=== PATIENT | female | born 1950 | race Caucasian/White ===

== ENCOUNTER 2018-04-14 13:56 | Emergency (ER) | payer MEDICARE, OTHER ==
--- NOTE | 2018-04-14 16:57 | RAD ---
Date of service: 04/14/2018 PROCEDURE: Radiographs of the left clavicle. HISTORY: point tenderness on clavicle COMPARISON: None. FINDINGS: LEFT CLAVICLE: No fracture or focal lesion. JOINTS: Preserved glenohumeral relationship, acromioclavicular degenerative change: Mild. SOFT TISSUES: Grossly unremarkable. OTHER FINDINGS: None. IMPRESSION: No acute findings related to/ accounting for the clinical presentation.
--- NOTE | 2018-04-14 16:58 | RAD ---
Date of service: 04/14/2018 PROCEDURE: Radiographs of the Left Shoulder HISTORY: acute left shoulder pain COMPARISON: No prior. FINDINGS: BONES: Normal. No fracture. JOINTS: Normal. Glenohumeral and acromioclavicular joints preserved. No osteoarthritis. SOFT TISSUES: Normal. OTHER FINDINGS: None. IMPRESSION: Normal radiographs of the left shoulder.
--- NOTE | 2018-04-14 17:31 | ED PDOC ---
Upper Extremity Pain/Injury Time Seen by Provider: 04/14/18 14:37 Chief Complaint (Nursing): Chest Pain Chief Complaint (Provider): Left shoulder pain History Per: Patient History/Exam Limitations: language barrier (hx obtained using [employer] [employer]l interpreter # [id number]) Additional Complaint(s): 68 y/o F with hx of arthritis and HTN who presents with left shoulder/chest pain since yesterday. Pt states that she has a hx of arthritis and has had shoulder pain but last night was much worse than ever. It occurred while she was sitting down suddenly and has been having trouble lifting her left arm. States that the pain is mostly over her left clavicle. Denies SOB, numbness/tingling, palpitations, fever, chills, night sweats or trauma/fall. Past Medical History Reviewed: Historical Data, Nursing Documentation, Vital Signs Vital Signs: Last Vital Signs Temp 98.7 F 04/14/18 14:23 Pulse 69 04/14/18 14:23 Resp 18 04/14/18 14:23 BP 130/69 04/14/18 14:23 Pulse Ox 97 04/14/18 14:23 - Medical History PMH: Arthritis - Family History Family History: States: Unknown Family Hx - Home Medications Home Medications: Ambulatory Orders Medication Instructions Recorded Cyclobenzaprine [Cyclobenzaprine 10 mg PO Q8 PRN 5 Days tab 04/14/18 HCl] RX: Ibuprofen [Motrin Tab] 800 mg PO Q6 PRN 7 Days tab 04/14/18 - Allergies Allergies/Adverse Reactions: Allergies Allergy/AdvReac Type Severity Reaction Status Date / Time No Known Allergies Allergy Verified 04/14/18 14:23 Review of Systems Constitutional: Negative for: Fever, Chills Cardiovascular: Positive for: Chest Pain Respiratory: Negative for: Shortness of Breath Musculoskeletal: Positive for: Shoulder Pain Physical Exam - Reviewed Nursing Documentation Reviewed: Yes Vital Signs Reviewed: Yes - Physical Exam Appears: Positive for: Uncomfortable Neck: Positive for: Normal, Painless ROM Cardiovascular/Chest: Positive for: Regular Rate, Rhythm Respiratory: Positive for: Normal Breath Sounds Extremity: Positive for: Tenderness (on palpation of left humeral head and left clavicle), Capillary Refill (< 2 sec). Negative for: Normal ROM (decreased ROM with flexion and abduction at left shoulder, normal flexion/extension of Left elbow) Neurologic/Psych: Positive for: Alert, Oriented - ECG O2 Sat by Pulse Oximetry: 97 Medical Decision Making Medical Decision Making: EKG done in triage: sinus, HR 71, no ischemic change toradol 30mg IM x 1 Flexeril 10mg PO x 1 Left shoulder x-ray Left clavicle x-ray Left shoulder x-ray: IMPRESSION: Normal radiographs of the left shoulder. Left clavicle x-ray: IMPRESSION: No acute findings related to/ accounting for the clinical presentation. 18:00: re-assessed, pain has improved but persists. She is able to move her arm better. Stable for D/c home. Disposition - Clinical Impression Clinical Impression: Shoulder pain, left - Patient ED Disposition Is Patient to be Admitted: No Counseled Patient/Family Regarding: Studies Performed, Diagnosis, Need For Followup, Rx Given - Disposition Referrals: Asael London MD [Family Provider] - Disposition: Routine/Home Disposition Time: 18:25 Condition: STABLE Additional Instructions: F/u with primary care doctor or orthopedist if pain persists. Take Tylenol and Ibuprofen for pain. Take Flexeril for muscle stiffness. Flexeril can cause you to be drowsy so avoid taking it if you need to drive or operate heavy machinery. Prescriptions: Cyclobenzaprine [Cyclobenzaprine HCl] 10 mg PO Q8 PRN 5 Days tab PRN Reason: Muscle Spasm RX: Ibuprofen [Motrin Tab] 800 mg PO Q6 PRN 7 Days tab PRN Reason: Pain, Moderate (4-7) Instructions: Shoulder Pain (DC) Forms: [employer] (I[place]ic) Print Language: DIVEHI
[2018-04-14 19:09] VITALS: BP 130/78; PULSE 78; RESP 20; TEMP 97.6
[2018-04-14 21:10] VITALS: O2SAT 97
--- NOTE | 2018-04-15 09:02 | CARD ---
APPROVED REPORT Date of service: 04/14/2018 EKG Measurement Heart [id number] <Conclusion> Normal sinus rhythm Normal ECG
== END 2018-04-14 19:10 | disposition home or self-care (01) ==
LOC: H.ER 13:56
DX: M25.512 Pain in left shoulder (principal)
CPT/HCPCS: 73000; 73030; 93005; 96372; 99283; J1885